=== PATIENT | female | born 1950 | race Caucasian/White ===

== ENCOUNTER 2019-03-05 14:30 | Observation (INO) ==
--- NOTE | 2019-03-05 15:13 | Emergency Department Note ---
Disposition Clinical Impression: Bronchitis Chest pain Qualifiers: Chest pain type: unspecified Qualified Code(s): R07.9 - Chest pain, unspecified Disposition: Admitted As Inpatient Condition: Good Time of Disposition: 15:27 Chest Pain HPI - General Chief Complaint: ED Chest Pain Stated Complaint: CP,Sent from cardiology Time Seen by Provider: 03/05/19 14:39 Source: patient, family Limitations: no limitations Vital Signs Reviewed: Yes Nursing Notes Reviewed: Yes - History of Present Illness HPI Narrative: Female patient with a history of 4 stents placed present to the emergency department being sent by cardiology for left sided chest pain. She had an episode of this approximately 4 days ago as well that self resolve. States that now that she is here the chest pain is leading up to her left neck. States this pain started while she was driving in today. Does have history of TN previously. Last stent was placed 3 years ago. She does take Eliquis is 2 times a day. Since replace at [facility]. She is following with cardiology here however. Severity scale (1-10): 5 - Related Data Home Medications Medication Instructions Recorded Confirmed Albuterol Sulfate [Albuterol 2 puff IH Q6H PRN 10/05/18 03/05/19 Inhaler] Apixaban [Eliquis] 2.5 mg PO DAILY 10/05/18 03/05/19 Budesonide/Formoterol 160/4.5 2 puff IH BIDR 10/05/18 03/05/19 [Symbicort 160/4.5] Clopidogrel [Plavix] 75 mg PO DAILY 10/05/18 03/05/19 Cyclobenzaprine HCl 10 mg PO HS 10/05/18 03/05/19 DULoxetine [Cymbalta] 30 mg PO DAILY 10/05/18 03/05/19 Dicyclomine Hcl [Bentyl] 20 mg PO QID PRN 10/05/18 03/05/19 Ergocalciferol (VITAMIN D2) 50,000 unit PO WE 10/05/18 03/05/19 [Vitamin D2] Fenofibric Acid (Choline) 135 mg PO DAILY 10/05/18 03/05/19 [Trilipix] Ferrous Gluconate 324 mg PO DAILY 10/05/18 03/05/19 Fluticasone Propionate Nasal 50 mcg NS DAILY 10/05/18 03/05/19 [Flonase] Folic Acid 1 mg PO DAILY 10/05/18 03/05/19 Hydroxychloroquine Sulfate 200 mg PO TID 10/05/18 03/05/19 [Plaquenil] Levothyroxine Sodium [Tirosint] 50 mcg PO QAM 10/05/18 03/05/19 Losartan Potassium [Cozaar] 50 mg PO DAILY 10/05/18 03/05/19 Methotrexate [Otrexup] 15 mg PO MO 10/05/18 03/05/19 Nitroglycerin [Nitrostat] 0.4 mg SL CONT PRN MDD X3 DOSES 10/05/18 03/05/19 CALL 911 Omeprazole [PriLOSEC] 20 mg PO BID 10/05/18 03/05/19 Potassium Chloride [Klor-Con 10] 10 meq PO TID 10/05/18 03/05/19 Spironolactone [Aldactone] 50 mg PO QAM 10/05/18 03/05/19 Albuterol Neb [Proventil Neb] 2.5 mg PO Q6H PRN 03/05/19 03/05/19 Allopurinol [Zyloprim 300 MG] 300 mg PO DAILY 03/05/19 03/05/19 Atorvastatin Calcium [Lipitor] 20 mg PO HS 03/05/19 03/05/19 Cyanocobalamin (B-12) [Vitamin B12] 1,000 mcg SQ QMONTH 03/05/19 03/05/19 Fexofenadine HCl [Allergy Relief] 180 mg PO DAILY 03/05/19 03/05/19 Furosemide [Lasix] 40 mg PO QPM 03/05/19 03/05/19 Furosemide [Lasix] 60 mg PO QAM 03/05/19 03/05/19 Metoprolol [Lopressor] 25 mg PO BID 03/05/19 03/05/19 Montelukast Sodium [Singulair] 5 mg PO DAILY 03/05/19 03/05/19 Polyethylene Glycol 3350 17 gm PO DAILY 03/05/19 03/05/19 Allergies Allergy/AdvReac Type Severity Reaction Status Date / Time acetaminophen Allergy Vomiting Verified 03/05/19 22:23 [From Joss] ampicillin Allergy Rash Verified 03/05/19 22:23 codeine Allergy Vomiting Verified 03/05/19 22:23 iodine Allergy Rash Verified 03/05/19 22:23 meperidine [From Demerol] Allergy Vomiting Verified 03/05/19 22:23 moxifloxacin [From Avelox] Allergy See Verified 03/05/19 22:23 Comments Penicillins Allergy Rash Verified 03/05/19 22:23 pentazocine Allergy See Verified 03/05/19 22:23 Comments phenobarbital Allergy Vomiting Verified 03/05/19 22:23 propoxyphene [From Darvon] Allergy Vomiting Verified 03/05/19 22:23 Sulfa (Sulfonamide Allergy Rash Verified 03/05/19 22:23 Antibiotics) morphine AdvReac Vomiting Verified 03/05/19 22:23 All systems ED: reviewed and negative except as stated. Review of Systems: As Per HPI Constitutional: Denies: fever, chills ENT ED: Denies: congestion Cardiovascular: Reports: chest pain Respiratory: Denies: cough, dyspnea Gastrointestinal: Reports: nausea. Denies: abdominal pain, vomiting, diarrhea Genitourinary: Denies: urgency, dysuria, frequency Musculoskeletal: Reports: neck pain (Chest pain radiates to her neck. Started and she has been in the emergency department.). Denies: back pain Chest Pain PMH - Past Medical History Medical history: Reports: other Surgical history: Reports: appendectomy, cholecystectomy, hysterectomy Psychiatric history: Reports: no psych history - Social History Smoking Status: Never smoker Alcohol use: Reports: none Drug use: Reports: none Physical Exam - General Limitations: no limitations General appearance: alert, in no apparent distress - Head Head exam: atraumatic, normocephalic, normal inspection - Eye Eye exam: Present: normal appearance, PERRL, EOMI - ENT ENT exam: normal exam, normal oropharynx, mucous membranes moist - Neck Neck exam: Present: normal inspection, full ROM, trachea midline - Chest Chest inspection: Present: normal inspection, symmetric chest wall rise - Respiratory Respiratory exam: Present: normal lung sounds bilaterally. Absent: respiratory distress, accessory muscle use - Cardiovascular Cardiovascular exam: Present: regular rate, normal rhythm, normal heart sounds - Abdominal Exam Abdominal exam: Present: soft, Non-Tender. Absent: tenderness, distention, guarding, rebound, rigidity, organomegaly, Saucedo's sign, Rovsing's sign, tenderness at McBurney's Point - Extremities Exam Extremities exam: Present: normal inspection, full ROM, normal capillary refill, pedal edema (Mild to lower extremities). Absent: tenderness - Neurological Exam Neurological exam: Present: alert, oriented X3 - Psychiatric Psychiatric exam: Present: normal affect, normal mood - Skin Skin exam: Present: warm, dry, intact, normal color Course Course Narrative: Patient appears comfortable resting in bed. She does complain of left-sided chest pain. States that she is now starting to her left neck. She was provided with nitroglycerin while here. She did take Elequis daily and states that she has been taking it as appropriate. Does have a history of TN. States that the pain does feel like her previous MIs. We did get a basic lab workup on patient which showed no elevation of troponin. The nitroglycerin did decrease her chest pain. She is currently anticoagulated. We will admit to the hospital for further evaluation of her chest pain. Patient is agreeable with this. Vitals are stable. - Consultations Consultation #1: Dr. Dr Cruz accepted patient in stable condition Time: 15:45 Vital Signs Temperature 98.3 F 03/05/19 14:32 Pulse Rate 86 03/05/19 14:32 Respiratory Rate 18 03/05/19 14:32 Blood Pressure 130/78 03/05/19 14:32 O2 Sat by Pulse Oximetry 98 03/05/19 14:32 Temperature 97.8 F 03/05/19 17:55 Pulse Rate 74 03/05/19 17:55 Respiratory Rate 16 03/05/19 17:55 Blood Pressure 115/76 03/05/19 17:55 O2 Sat by Pulse Oximetry 97 03/05/19 17:55 Oxygen Delivery Oxygen Delivery Room Air Chest Pain - Medical Records Medical records reviewed: Yes I reviewed the patient's medical records. - Lab Data Lab results reviewed: Yes I reviewed the patient's lab results. Result diagrams: 03/06/19 03:59 03/06/19 03:59 Lab Results 03/05/19 03/05/19 03/05/19 Range/Units 14:49 14:49 14:49 WBC 7.7 (4.3-11.1) K/mcL RBC 3.98 (3.82-4.97) M/mcL Hgb 12.3 (11.5-15.4) g/dL Hct 38.1 (35.3-44.9) % MCV 95.7 (83.0-100.0) fL MCH 30.9 (28.0-33.3) pg MCHC 32.3 (31.6-35.5) g/dL RDW 15.0 H (11.5-14.5) % Plt Count 350 (140-400) K/mcL MPV 9.4 (9.4-12.4) fL Immature Gran % 1.2 (0-4) % Seg Neutrophils % 66.3 % Lymphocytes % 17.2 % Monocytes % 12.0 % Eosinophils % 2.1 % Basophils % 1.2 % Neutrophils # 5.1 (1.6-8.9) K/mcL Lymphocytes # 1.3 (0.6-4.6) K/mcL Monocytes # 0.9 (0.0-1.3) K/mcL Eosinophils # 0.2 (0.0-0.6) K/mcL Basophils # 0.1 (0.0-0.2) K/mcL PT 13.7 H (9.4-12.1) Seconds INR 1.2 APTT 36.2 H (26.0-36.0) Seconds Sodium 143 (136-145) mEq/L Potassium 3.2 L (3.5-5.1) mEq/L Chloride 107 (98-107) mEq/L Carbon Dioxide 27 (23-29) mEq/L BUN 13 (8-23) mg/dL Creatinine 0.93 (0.60-1.20) mg/dL Est GFR ( Amer) > 60 (> 60) Est GFR (Non-Af Amer) 60 (> 60) BUN/Creatinine Ratio 14 (6-26) Glucose 115 H (70-105) mg/dL Calculated Osmolality 297 (280-300) Calcium 10.2 (8.6-10.3) mg/dL Troponin I < 0.03 (< 0.04) ng/mL - Radiology Data Radiology results reviewed: Yes I reviewed the patient's radiology results. Chest X-Ray 03/05/19 14:39 IMPRESSION: Increased lung markings at the bilateral infrahilar regions, may be related to mild bronchitis. D/ / Sanket Giang MD / Sanket Giang MD Interpreting Provider: Sanket Giang MD Attestation Statement - Attestation Attestation: Resident Attestation: I examined this patient and my medical decision making was reviewed with the Resident Physician. I agree with the documented findings, disposition and treatment plan as described except to the extent set forth below. We independently had [id number] contact with the patient. Patient presenting for evaluation of chest pain feels like previous TN. Improved with nitroglycerin. Patient be admitted for further management. No acute distress, resting in bed comfortably, regular rhythm, clear to auscultation bilaterally, no significant swelling to lower extremities.
[2019-03-05 15:15] LABS: Basophils # 0.1 K/mcL (0.0-0.2); Basophils % 1.2 %; Eosinophils # 0.2 K/mcL (0.0-0.6); Eosinophils % 2.1 %; Hematocrit 38.1 % (35.3-44.9); Hemoglobin 12.3 g/dL (11.5-15.4); Immature Granulocytes % 1.2 % (0-4); Lymphocytes # 1.3 K/mcL (0.6-4.6); Lymphocytes % 17.2 %; Mean Corpuscular HGB Conc 32.3 g/dL (31.6-35.5); Mean Corpuscular Hemoglobin 30.9 pg (28.0-33.3); Mean Corpuscular Volume 95.7 fL (83.0-100.0); Mean Platelet Volume 9.4 fL (9.4-12.4); Monocytes # 0.9 K/mcL (0.0-1.3); Neutrophils # 5.1 K/mcL (1.6-8.9); Platelet Count 350 K/mcL (140-400); Red Blood Count 3.98 M/mcL (3.82-4.97); Segmented Neutrophils % 66.3 %
[2019-03-05 15:16] LABS: INR 1.2; Prothrombin Time 13.7 Seconds (9.4-12.1)
[2019-03-05 15:18] LABS: Activated Partial Thrombo Time 36.2 Seconds (26.0-36.0)
[2019-03-05 15:23] LABS: BUN/Creatinine Ratio 14 (6-26); Blood Urea Nitrogen 13 mg/dL (8-23); Calcium 10.2 mg/dL (8.6-10.3); Carbon Dioxide 27 mEq/L (23-29); Chloride 107 mEq/L (98-107); Glucose 115 mg/dL (70-105); Osmolality,Calculated 297 (280-300); Potassium 3.2 mEq/L (3.5-5.1); Sodium 143 mEq/L (136-145); Troponin I < 0.03 ng/mL (< 0.04); eGFR For Non-African Americans 60 (> 60)
[2019-03-05] MEDS ORDERED: Ondansetron 4 MG/2 ML VIAL IVP PRN (16:03)
[2019-03-05] MEDS ORDERED: Naloxone 0.4 MG/ML INJ IVP PRN (16:03)
[2019-03-05] MEDS: Nitroglycerin 0.4 MG TAB.SUBL SL STA ×3 (16:07→16:25)
[2019-03-05] MEDS: Potassium Chloride Elixir 20 MEQ/15 ML UDC PO SCH (16:07)
--- NOTE | 2019-03-05 16:12 | Internal Med History&Physical ---
Date of Encounter: 03/05/19 Time of Encounter: 15:30 Internal Medicine - H&P: HPI Chief complaint: Chest pain Admitted From: Home History of present illness: Ms. Hwang is a 69 year old female with history of CAD status post PCI 4 (last one 3 years ago), proximal A. fib, cough variant asthma, SLE, Joe thyroiditis, and CKD, who presented from cardiology office due to chest pain. States that it started while she was driving to the clinic at 12:30pm, heaviness, radiates to her left neck. Associated with diaphoresis. No relieving factor so far but it was worsened with deep inspiration. Taking Eliquis presumably for Afib (recently transferred her care from [facility] to [place] due to insurance). No recent immobilization or surgery. Denies any shortness of breath, cough, sputum production, or sick contacts. No palpitation, hemoptysis, orthopnea, PND, or leg swelling. No GI/ symptoms. She was initially noted to be borderline hypotensive at the cardiology clinic but upon presentation to the ED, her blood pressure had already normalized. Otherwise afebrile and with good oxygen saturation on room air. Labwork was unremarkable with normal troponin and WBC. K 3.2, Cr 0.93. EKG showed normal sinus rhythm without STT changes concerning for ischemia. Chest x-ray to my interpretation is mostly clear but is reported to show increased lung markings at the bilateral infrahilar regions which could be related to mild bronchitis. Pt was admitted for further management Past Med Surg Social Fam HX - Past Medical History Medical history: asthma, atrial fibrillation, coronary artery disease, hypertension, other Additional medical history: SLE, Joe thyroiditis, sleep apnea Psychiatric history: no psych history - Past Surgical History Surgical History: appendectomy, cholecystectomy, hysterectomy Additional surgical history: heart stents x4, ovarian cysts removed, knee scope - Social History Smoking Status: Never smoker Smokeless Tobacco Status: No Alcohol use: none Drug use: none - Additional Family History Additional family history: No family history of premature CAD Internal Medicine - H&P: Meds Albuterol Sulfate [Albuterol Inhaler] 1 puff IH TID PRN 10/05/18 [History] Allopurinol [Zyloprim 100 MG] 100 mg PO DAILY 10/05/18 [History] Apixaban [Eliquis] 2.5 mg PO DAILY 10/05/18 [History] Budesonide/Formoterol 160/4.5 [Symbicort 160/4.5] 2 puff IH BIDR 10/05/18 [History] Cetirizine HCl [24Hour Allergy] 10 mg PO DAILY 10/05/18 [History] Cholecalciferol (Vitamin D3) [Dialyvite Vitamin D] 5,000 unit PO DAILY 10/05/18 [History] Clindamycin [Cleocin] 150 mg PO Q6HR #7 capsule 10/05/18 [Rx] Clopidogrel [Plavix] 75 mg PO DAILY 10/05/18 [History] Cyanocobalamin (B-12) [Vitamin B12] 1,000 mcg PO DAILY 10/05/18 [History] Cyclobenzaprine HCl 10 mg PO TID 10/05/18 [History] DULoxetine [Cymbalta] 30 mg PO BID 10/05/18 [History] Dicyclomine Hcl [Bentyl] 20 mg PO QID 10/05/18 [History] Ergocalciferol (VITAMIN D2) [Vitamin D2] 50,000 unit PO DAILY 10/05/18 [History] Fenofibric Acid (Choline) [Trilipix] 135 mg PO DAILY 10/05/18 [History] Fenofibric Acid (Choline) [Trilipix] 135 mg PO DAILY 10/05/18 [History] Ferrous Gluconate 324 mg PO DAILY 10/05/18 [History] Fluticasone Propionate Nasal [Flonase] 50 mcg NS DAILY 10/05/18 [History] Folic Acid 1 mg PO DAILY 10/05/18 [History] Furosemide [Lasix] 10 mg PO DAILY 10/05/18 [History] Furosemide [Lasix] 20 mg PO BID 10/05/18 [History] Gabapentin [Neurontin] 100 mg PO TID 10/05/18 [History] GuaiFENesin ER [Mucinex] 600 mg PO BID 10/05/18 [History] Hydroxychloroquine Sulfate [Plaquenil] 200 mg PO DAILY 10/05/18 [History] Levocetirizine Dihydrochloride [Allergy Relief] 5 mg PO DAILY 10/05/18 [History] Levothyroxine Sodium [Tirosint] 50 mcg PO DAILY 10/05/18 [History] Losartan Potassium [Cozaar] 50 mg PO DAILY 10/05/18 [History] Magnesium Oxide [Magnesium] 400 mg PO DAILY 10/05/18 [History] Methotrexate [Otrexup] 2.5 mg PO QWEEK 10/05/18 [History] Metoprolol Tartrate [Lopressor] 50 mg PO BID 10/05/18 [History] Nitroglycerin [Nitrostat] 0.4 mg SL CONT PRN 10/05/18 [History] Omeprazole Magnesium [Prilosec Otc] 20 mg PO DAILY 10/05/18 [History] Omeprazole [PriLOSEC] 20 mg PO DAILY 10/05/18 [History] Polyethylene Glycol [Polyox Wsr-301] 1 gm MC DAILY 10/05/18 [History] Potassium Chloride [Klor-Con 10] 10 meq PO BID 10/05/18 [History] Spironolactone [Aldactone] 50 mg PO DAILY 10/05/18 [History] Allergy/AdvReac Type Severity Reaction Status Date / Time acetaminophen Allergy Vomiting Verified 01/25/19 11:06 [From Darvocet-N] ampicillin Allergy Rash Verified 01/25/19 11:06 codeine Allergy Vomiting Verified 01/25/19 11:06 iodine Allergy Rash Verified 01/25/19 11:06 meperidine [From Demerol] Allergy Vomiting Verified 01/25/19 11:06 moxifloxacin [From Avelox] Allergy See Verified 01/25/19 11:06 Comments Penicillins Allergy Rash Verified 09/04/18 09:38 pentazocine Allergy See Verified 01/25/19 11:06 Comments phenobarbital Allergy Vomiting Verified 01/25/19 11:06 propoxyphene [From Darvon] Allergy Vomiting Verified 01/25/19 11:06 Sulfa (Sulfonamide Allergy Rash Verified 01/25/19 11:06 Antibiotics) morphine AdvReac Vomiting Verified 01/25/19 11:06 All Systems PM: A 10-system review of systems was performed and is negative for pertinent findings except as documented above in the HPI. - Constitutional Vitals: Temp Pulse Resp BP Pulse Ox 98.3 F 86 18 130/78 100 03/05/19 14:32 03/05/19 14:32 03/05/19 14:32 03/05/19 14:32 03/05/19 16:00 Exam: General: Alert and oriented, mild distress HEENT:EOMI, pupils equal, round and reactive. Cardiovascular:Normal S1 & S2, No JVD. Pulse regular. No chest wall tenderness Lungs: clear to auscultation, no wheezes/rales Abdomen:Soft, non-tender, no rigidity. Extremities:No deformity or swelling Neurological:Normal cognition and motor skills. Non-focal Skin:Normal color, no rash, no lesions. Pulses:Carotid and radial pulses normal +2. Rest of the physical exam is non contributory Internal Med - H&P Results - Labs CBC & Chem 7: 03/05/19 14:49 03/05/19 14:49 Labs: Short CBC 03/05/19 Range/Units 14:49 WBC 7.7 (4.3-11.1) K/mcL Hgb 12.3 (11.5-15.4) g/dL Hct 38.1 (35.3-44.9) % Plt Count 350 (140-400) K/mcL Neutrophils # 5.1 (1.6-8.9) K/mcL BMP 03/05/19 14:49 Sodium 143 Potassium 3.2 L Chloride 107 Carbon Dioxide 27 BUN 13 Creatinine 0.93 Glucose 115 H Calcium 10.2 Cardiac Enzymes 03/05/19 Range/Units 14:49 Troponin I < 0.03 (< 0.04) ng/mL - Impressions ITS Impressions Chest X-Ray 03/05/19 14:39 IMPRESSION: Increased lung markings at the bilateral infrahilar regions, may be related to mild bronchitis. D/ / Sanket Giang MD / Sanket Giang MD Interpreting Provider: Sanket Giang MD - Assessment and Plan (1) Chest pain Current Visit: Yes Status: Acute Assessment and plan: Acute onset of chest pain at 12:30 PM on the day of presentation in a patient with prior CAD with PCI 1st troponin -ve, EKG without ST-T changes concerning for ischemia of note, pt recently had low dose stress test (limited due to low BP), which was -ve for ischemia or infarct. Echo was also unremarkable. trend troponin telemetry will discuss with cardiology for the next step in investigation resume home meds for CAD once reconciled Qualifiers: Chest pain type: unspecified Qualified Code(s): R07.9 - Chest pain, unspecified (2) Cough variant asthma Current Visit: No Status: Chronic Assessment and plan: Not in exacerbation Resume home inhalers once reconciled (3) Afib Current Visit: Yes Status: Chronic Assessment and plan: Currently in normal sinus rhythm On Eliquis at home, resume once reconciled Qualifiers: Atrial fibrillation type: paroxysmal Qualified Code(s): I48.0 - Paroxysmal atrial fibrillation (4) CKD (chronic kidney disease) stage 3, GFR 30-59 ml/min Current Visit: No Status: Chronic Assessment and plan: Cr 0.93 on presentation continue to monitor (5) History of systemic lupus erythematosus (SLE) Current Visit: No Status: Chronic Assessment and plan: Resume home meds once reconciled (6) DVT prophylaxis Current Visit: Yes Status: Acute Assessment and plan: on Eliquis - Time Spent With Patient Total time spent is greater than 50% in coordination of care (as documented) at patient's floor/unit and/or counseling patient: 25 - 35 minutes
[2019-03-05] MEDS ORDERED: Ipratropium/Albuterol Neb 3 ML IH PRN (16:31)
[2019-03-05] MEDS: Nitroglycerin 0.4 MG TAB.SUBL SL PRN ×2 (19:12→19:16)
[2019-03-05] MEDS ORDERED: Aspirin Enteric Coated 325 MG Tablet PO ONE (19:25)
[2019-03-05] MEDS ORDERED: Aspirin 81 MG TAB.CHEW ONE (19:29)
[2019-03-05] MEDS ORDERED: Nitroglycerin 25 MG/250 ML INFUS..BTL IVC SCH (19:45)
[2019-03-05] MEDS: Apixaban 5 MG TABLET PO SCH (20:22)
[2019-03-05] MEDS ORDERED: Aspirin Enteric Coated 81 MG Tablet PO ONE (21:45)
--- NOTE | 2019-03-06 02:11 | Event Note ---
Date of Encounter: 03/05/19 Time of Encounter: 19:00 Alerted by nurses on 3B as I was making my initial rounds that I needed to see this pt. immediately as she was reporting CP 07/17. Went to see pt. who was laying in bed, appeared restless, and was holding her chest. Pt. stated that she was having left-sided chest pain w/radiation to left neck. Pt. had received 1 dose of SL nitro w/o relief. Stat EKG ordered which showed SR w/borderline left axis deviation. Stat troponin ordered early d/t pts. current sx. Initial troponin <0.03. 324 mg aspirin ordered and given to pt. 80 mg Lipitor ordered and given. Pt. has had hypotension, so BP was carefully monitored after SL nitro which dropped to low 90s systolically for a brief time and increased to 110s then 120s. Pts. daughter was present and stated that in the past a nitro gtt worked for pts. CP when SL did not. Nitro gtt ordered. Pt. had an Echocardiogram done on 02/09/19 which showed LVEF grossly 75%, hyperdynamic LV, mild left ventricular diastolic dysfunction, grossly normal RV size and function, no significant valvular dysfunction. Unable to estimate RVSP due to lack of TR jet and IVC visualization. Limited Echocardiogram ordered. Alerted by pts. nurse at 20:36 that pt. was reporting improvement in CP. Echocardiogram and bilateral carotid Dopplers completed. D/t improvement in CP sx, nitro gtt held for now. Resident Afshan Regalado will be covering 3B for the evening. Dr. Regalado informed of the situation and told to monitor pt. closely. Pts. nurse instructed to continue monitoring the pt. very closely and alert Dr. Regalado or myself immediately of any adverse changes. 2nd and 3rd troponins <0.03.
[2019-03-06 04:12] LABS: Hematocrit 36.5 % (35.3-44.9); Mean Corpuscular HGB Conc 32.9 g/dL (31.6-35.5); Mean Corpuscular Hemoglobin 31.9 pg (28.0-33.3); Mean Corpuscular Volume 97.1 fL (83.0-100.0); Mean Platelet Volume 9.3 fL (9.4-12.4); Platelet Count 321 K/mcL (140-400); Red Blood Count 3.76 M/mcL (3.82-4.97)
[2019-03-06 04:32] LABS: BUN/Creatinine Ratio 15 (6-26); Blood Urea Nitrogen 15 mg/dL (8-23); Calcium 10.2 mg/dL (8.6-10.3); Carbon Dioxide 24 mEq/L (23-29); Chloride 108 mEq/L (98-107); Chol/HDL Ratio 2.9 (0-4.9); Cholesterol 103 mg/dL (< 200); Glucose 110 mg/dL (70-105); HDL Cholesterol 36 mg/dL (40-59); LDL Cholesterol,Calculated 52 mg/dL (0-99); Magnesium 2.3 mg/dL (1.6-2.6); Osmolality,Calculated 297 (280-300); Potassium 3.7 mEq/L (3.5-5.1); Sodium 143 mEq/L (136-145); Triglycerides 74 mg/dL (< 150); eGFR For Non-African Americans 56 (> 60)
[2019-03-06] MEDS: Potassium Chloride Elixir 20 MEQ/15 ML UDC PO SCH ×2 (09:30→12:07)
[2019-03-06] MEDS: Apixaban 5 MG TABLET PO SCH ×3 (09:30→21:29)
[2019-03-06] MEDS: Isosorbide MONOnitrate (24 HR) 30 MG TAB.ER.24H PO SCH ×2 (09:30→12:07)
--- NOTE | 2019-03-06 13:57 | Cardiology Consult Note ---
<Billie Kaur - Last Filed: 03/06/19 14:21> Date of Encounter: 03/06/19 Time of Encounter: 10:00 Assessment and Plan (1) Chest pain Current Visit: Yes Status: Acute Patient presents with typical chest pain with radiation to left shoulder and neck, diaphoresis and shortness of breath History of CAD s/p ND and 4 stents, HTN, HLD Stress test 02/13/19- Perfusion imaging negative for ischemia or infarct ECHO 02/09/19- LVEF 75%, hyperdynamic LV, mild LV diastolic dysfunction, grossly normal RV size and function, no sign of valvular dysfunction. Limited ECHO 03/05/19- LVEF 70&, RV not well visualized, grossly normal systolic function Troponins negative x 3 EKG shows NSR with left axis deviation, KS 205, QRS 100, QT 404, QTc 440, no ST elevation or depression CXR- increased lung markings at bilateral infrahilar regions which may represent mild bronchitis Continue atorvastatin, plavix, eliquis, lopressor, and if blood pressure stable, SL nitro, imdur, losartan Continuous cardiac monitoring Patient to undergo LHC tomorrow as she is allergic to contrast dye. She will be NPO at midnight and pretreated with prednisone and benadryl. Qualifiers: Chest pain type: unspecified Qualified Code(s): R07.9 - Chest pain, unspecified (2) CAD (coronary artery disease) Current Visit: Yes Status: Acute History of CAD [facility] records review- ND in 2001 s/p MARIAN LAD, MARIAN mRCA 2004 and 2012. 10/2014 normal stress. Troponin negative x3 EKG shows NSR with left axis deviation, KS 205, QRS 100, QT 404, QTc 440, no ST elevation or depression Continue eliquis, plavix, lopressor, atorvastatin, losartan if blood pressure stable, SL nitro and imdur. Qualifiers: Coronary Disease-Associated Artery/Lesion type: ambler artery [place] vs. transplanted heart: ambler heart Associated angina: with unspecified angina Qualified Code(s): I25.119 - Atherosclerotic heart disease of ambler coronary artery with unspecified angina pectoris (3) Paroxysmal atrial fibrillation Current Visit: Yes Status: Acute History of PAF Currently NSR Continue home medications metoprolol and eliquis Continous cardiac monitoring (4) HTN (hypertension) Current Visit: Yes Status: Acute History of HTN, however patient has had some episodes of hypotension most likely secondary to SL nitroglycerin and imdur Patient to take lopressor for PAF, can hold losartan if needed. Continuous cardiac monitoring Qualifiers: Hypertension type: unspecified Qualified Code(s): I10 - Essential (primary) hypertension (5) HLD (hyperlipidemia) Current Visit: Yes Status: Acute History of hyperlipidemia Continue home medication atrovastatin Qualifiers: Hyperlipidemia type: unspecified Qualified Code(s): E78.5 - Hyperlipidemia, unspecified (6) CKD (chronic kidney disease) stage 3, GFR 30-59 ml/min Current Visit: No Status: Chronic History of CKD stage 3 BUN 15, Cr 0.99, GFR 56- currently stable at baseline Continue to renally dose medications and avoid nephrotoxic agents (7) DVT prophylaxis Current Visit: Yes Status: Acute Eliquis Discussion w patient/family: The assessment and plan as outlined above was discussed with the patient and/or family members who expressed understanding and agreement. All questions were answered. Thank you for involving us in the care of your patient. Please call with any questions. History of Present Illness Consult date: 03/06/19 Consult reason: Chest pain Chief complaint: Chest pain History of present illness: Ms. Hwang is a 69 year old female presenting with complaint of chest pain from cardiology clinic. PMH of CAD s/p ND in 2001, s/p MARIAN LAD, MARIAN mRCA 2004 and 2012. Normal stress test in 2013. Also, paroxysmal afib, HTN, HLD, CKD stage 3, SLE, Hashimotos thryroiditis, asthma. She states that she has been chest pain free up until yesterday when she began to feel left sided chest pressure, 8/10 with radiation to left shoulder and neck which occurred while driving to doctor's appointment. She states that she was also diaphoretic, short of breath and nauseous. She is unsure if chest pain is exertion. She had a repeateepisode last night as well with chest pressure that did not radiate. She also admits to progressive fatigue over the past few weeks. Her last ECHO was 02/09/19 with LVEF 75%, hyperdynamic LV, mild LV diastolic dysfunction, grossly normal RV size and function and no sign of valve dysfunction. She had a stress test 02/13/19 which was negative for ischemia or infarct. Past Med Surg Social Fam HX - Past Medical History Medical history: asthma, atrial fibrillation, coronary artery disease, hypertension, other Additional medical history: SLE, Joe thyroiditis, sleep apnea Psychiatric history: no psych history - Past Surgical History Surgical History: appendectomy, cholecystectomy, hysterectomy Additional surgical history: heart stents x4, ovarian cysts removed, knee scope - Social History Smoking Status: Never smoker Smokeless Tobacco Status: No Alcohol use: none Drug use: none Medications and Allergies Albuterol Sulfate [Albuterol Inhaler] 2 puff IH Q6H PRN 10/05/18 [History] Apixaban [Eliquis] 2.5 mg PO DAILY 10/05/18 [History] Budesonide/Formoterol 160/4.5 [Symbicort 160/4.5] 2 puff IH BIDR 10/05/18 [History] Clopidogrel [Plavix] 75 mg PO DAILY 10/05/18 [History] Cyclobenzaprine HCl 10 mg PO HS 10/05/18 [History] DULoxetine [Cymbalta] 30 mg PO DAILY 10/05/18 [History] Dicyclomine Hcl [Bentyl] 20 mg PO QID PRN 10/05/18 [History] Ergocalciferol (VITAMIN D2) [Vitamin D2] 50,000 unit PO WE 10/05/18 [History] Fenofibric Acid (Choline) [Trilipix] 135 mg PO DAILY 10/05/18 [History] Ferrous Gluconate 324 mg PO DAILY 10/05/18 [History] Fluticasone Propionate Nasal [Flonase] 50 mcg NS DAILY 10/05/18 [History] Folic Acid 1 mg PO DAILY 10/05/18 [History] Hydroxychloroquine Sulfate [Plaquenil] 200 mg PO TID 10/05/18 [History] Levothyroxine Sodium [Tirosint] 50 mcg PO QAM 10/05/18 [History] Losartan Potassium [Cozaar] 50 mg PO DAILY 10/05/18 [History] Methotrexate [Otrexup] 15 mg PO MO 10/05/18 [History] Nitroglycerin [Nitrostat] 0.4 mg SL CONT PRN MDD X3 DOSES CALL 911 10/05/18 [History] Omeprazole [PriLOSEC] 20 mg PO BID 11/29/18 [History] Potassium Chloride [Klor-Con 10] 10 meq PO TID 10/05/18 [History] Spironolactone [Aldactone] 50 mg PO QAM 10/05/18 [History] Albuterol Neb [Proventil Neb] 2.5 mg PO Q6H PRN 03/05/19 [History] Allopurinol [Zyloprim 300 MG] 300 mg PO DAILY 03/05/19 [History] Atorvastatin Calcium [Lipitor] 20 mg PO HS 03/05/19 [History] Cyanocobalamin (B-12) [Vitamin B12] 1,000 mcg SQ QMONTH 03/05/19 [History] Fexofenadine HCl [Allergy Relief] 180 mg PO DAILY 03/05/19 [History] Furosemide [Lasix] 40 mg PO QPM 03/05/19 [History] Furosemide [Lasix] 60 mg PO QAM 03/05/19 [History] Metoprolol [Lopressor] 25 mg PO BID 03/05/19 [History] Montelukast Sodium [Singulair] 5 mg PO DAILY 03/05/19 [History] Polyethylene Glycol 3350 17 gm PO DAILY 03/05/19 [History] Allergy/AdvReac Type Severity Reaction Status Date / Time acetaminophen Allergy Vomiting Verified 03/05/19 22:23 [From Darvocet-N] ampicillin Allergy Rash Verified 03/05/19 22:23 codeine Allergy Vomiting Verified 03/05/19 22:23 iodine Allergy Rash Verified 03/05/19 22:23 meperidine [From Demerol] Allergy Vomiting Verified 03/05/19 22:23 moxifloxacin [From Avelox] Allergy See Verified 03/05/19 22:23 Comments Penicillins Allergy Rash Verified 03/05/19 22:23 pentazocine Allergy See Verified 03/05/19 22:23 Comments phenobarbital Allergy Vomiting Verified 03/05/19 22:23 propoxyphene [From Darvon] Allergy Vomiting Verified 03/05/19 22:23 Sulfa (Sulfonamide Allergy Rash Verified 03/05/19 22:23 Antibiotics) morphine AdvReac Vomiting Verified 03/05/19 22:23 All Systems Review: The remainder of the systems were reviewed and are negative - Constitutional Constitutional: no chills, no fever(s) - EENT Eyes: no loss of vision Nose, mouth and throat: no dysphagia - Cardiovascular Cardiovascular: chest pain at rest, diaphoresis, dyspnea at rest, radiating jaw, neck or arm pain, lightheadedness, no leg edema, no orthopnea, no palpitations, no paroxysmal nocturnal dyspnea, no syncope - Respiratory Respiratory: no cough - Gastrointestinal Gastrointestinal: no abdominal pain, no constipation, no diarrhea - Genitourinary Genitourinary: no dysuria, no hematuria - Musculoskeletal Musculoskeletal: no arthralgias, no myalgias - Integumentary Integumentary: no erythema - Neurological Neurological: no focal weakness, no syncope - Psychiatric Psychiatric: no anxiety, no depression - Hematological/Lymphatic Hematologic/Lymphatic: easy bleeding Physical Examination Vital Signs, Last 4 Hours Temp Pulse Resp BP Pulse Ox 03/06/19 11:20 97.5 F L 67 16 126/76 95 General: Conversant, No Apparent Distress HEENT: Atraumatic, Normocephaly, Mucus Membranes Moist Neck: No JVD, Normal carotid pulses Cardiac: Reg Rate and Rhythm, Normal S1 and S2, No Murmur Lungs: Normal Breath Sounds, No Wheeze, Rales, Rhonchi Neuro: Alert and responsive, No focal deficits noted Abdomen: Soft, Non-Tender Skin: No rashes noted on visualized skin Musculoskeletal: No Chest Wall Tenderness Extremities: No Clubbing, No Cyanosis, No Edema, Normal Pulses Results 03/06/19 03:59 03/06/19 03:59 Lab Results 03/05/19 03/05/19 03/05/19 14:49 14:49 14:49 WBC 7.7 Hgb 12.3 Hct 38.1 Plt Count 350 INR 1.2 APTT 36.2 H Sodium 143 Potassium 3.2 L Chloride 107 Carbon Dioxide 27 BUN 13 Creatinine 0.93 Glucose 115 H Calcium 10.2 Magnesium Troponin I < 0.03 03/05/19 03/05/19 03/06/19 19:34 21:09 03:59 WBC Hgb Hct Plt Count INR APTT Sodium Potassium Chloride Carbon Dioxide BUN Creatinine Glucose Calcium Magnesium Troponin I 0.03 0.03 < 0.03 03/06/19 03/06/19 03:59 03:59 WBC 7.7 Hgb 12.0 Hct 36.5 Plt Count 321 INR APTT Sodium 143 Potassium 3.7 Chloride 108 H Carbon Dioxide 24 BUN 15 Creatinine 0.99 Glucose 110 H Calcium 10.2 Magnesium 2.3 Troponin I Consult Discharge Plan - Plan Referrals: Cherri Recinos MD [Primary Care Provider] - <Duy Diaz - Last Filed: 03/06/19 16:38> Date of Encounter: 03/06/19 - Attending Attestation I have personally performed a face to face evaluation on this patient. I have reviewed and agree with the documented findings and care plan as documented by the resident. History and Exam by me shows: 69-year-old pleasant female with history of CAD status post stents, presenting with chest pain on mild exertion relieved by nitroglycerin. She is on beta mike and nitrates. We will arrange for cardiac catheterization as soon as dye allergy prophylaxis protocol is completed. Continue aspirin, beta mike, high intensity statin. Thanks, Duy Diaz MD FAC Assessment and Plan Discussion w patient/family: The assessment and plan as outlined above was discussed with the patient and/or family members who expressed understanding and agreement. All questions were answered. Thank you for involving us in the care of your patient. Please call with any questions. History of Present Illness History of present illness: Ms. Hwang is a 69 year old female All Systems Review: The remainder of the systems were reviewed and are negative Physical Examination Vital Signs, Last 4 Hours BP 03/06/19 14:54 99/63 03/06/19 14:44 101/66 03/06/19 14:34 114/72 Results 03/06/19 03:59 03/06/19 03:59 Lab Results 03/05/19 03/05/19 03/06/19 19:34 21:09 03:59 WBC Hgb Hct Plt Count Sodium Potassium Chloride Carbon Dioxide BUN Creatinine Glucose Calcium Magnesium Troponin I 0.03 0.03 < 0.03 03/06/19 03/06/19 03:59 03:59 WBC 7.7 Hgb 12.0 Hct 36.5 Plt Count 321 Sodium 143 Potassium 3.7 Chloride 108 H Carbon Dioxide 24 BUN 15 Creatinine 0.99 Glucose 110 H Calcium 10.2 Magnesium 2.3 Troponin I
--- NOTE | 2019-03-06 14:08 | Electrocardiograph Report ---
[address] [address] Test Date: 2019-03-05 Pat Name: Ani Hwang Department: 113 Room: 3B Gender: F Mate Fourth: : 1950 Requested By: Jay Hess Order Number: [id number] Reading MD: Billie Escalante Measurements Intervals [place] Rate: 80 P: -25 DC: 205 QRS: -21 QRSD: 100 T: 3 QT: 404 QTc: 440 Interpretive Statements SINUS RHYTHM BORDERLINE LEFT AXIS DEVIATION [QRS AXIS < -20] Electronically Signed On 03-06-2019 14:06:53 EDT by Billie Escalante
[2019-03-06] MEDS: Nitroglycerin 0.4 MG TAB.SUBL SL PRN ×2 (14:39→14:44)
--- NOTE | 2019-03-06 16:21 | Electrocardiograph Report ---
[facility] Test Date: 2019-03-05 Pat Name: Ani Hwang Department: EXAM14 Room: 3B55 Gender: F Staff Home Therapy Rn: : 1950 Requested By: Jamilah Brian Order Number: [id number] Reading MD: Tj Mckeon Measurements Intervals [place] Rate: 76 P: -31 NV: 200 QRS: -19 QRSD: 102 T: 50 QT: 397 QTc: 447 Interpretive Statements Sinus rhythm Borderline left axis deviation Abnormal R-wave progression, late transition Electronically Signed On 03-06-2019 16:20:09 EDT by Tj Mckeon
[2019-03-06] MEDS: predniSONE 20 MG TABLET PO SCH (17:12)
--- NOTE | 2019-03-06 20:28 | Internal Med Progress Note ---
Hospitalist Progress Note - Encounter Date of Encounter: 03/06/19 Time of Encounter: 12:00 - Subjective Interval History: Patient was seen and examined at bedside currently denies any chest pain evaluated by cardiology and will undergo LHC in the a.m. She will be nothing by mouth after midnight - Exam Vitals: Temp Pulse Resp BP Pulse Ox 98.6 F 75 16 101/62 93 03/06/19 18:29 03/06/19 18:29 03/06/19 18:29 03/06/19 18:29 03/06/19 18:29 Exam: General: Alert and oriented, mild distress HEENT:EOMI, pupils equal, round and reactive. Cardiovascular:Normal S1 & S2, No JVD. Pulse regular. No chest wall tenderness Lungs: clear to auscultation, no wheezes/rales Abdomen:Soft, non-tender, no rigidity. Extremities:No deformity or swelling Neurological:Normal cognition and motor skills. Non-focal Skin:Normal color, no rash, no lesions. Pulses:Carotid and radial pulses normal +2. Rest of the physical exam is non contributory - Assessment and Plan (1) Chest pain Current Visit: Yes Status: Acute Assessment and Plan: Acute onset of chest pain at 12:30 PM on the day of presentation in a patient with prior CAD with PCI 1st troponin -ve, EKG without ST-T changes concerning for ischemia of note, pt recently had low dose stress test (limited due to low BP), which was -ve for ischemia or infarct. Echo was also unremarkable. trend troponin telemetry Cardiology consulted C in a.m. resume home meds for CAD once reconciled (2) Cough variant asthma Current Visit: No Status: Chronic Assessment and Plan: Not in exacerbation Resume home inhalers once reconciled (3) CKD (chronic kidney disease) stage 3, GFR 30-59 ml/min Current Visit: No Status: Chronic Assessment and Plan: Cr 0.93 on presentation continue to monitor (4) Afib Current Visit: Yes Status: Chronic Assessment and Plan: Currently in normal sinus rhythm On Eliquis at home, resume once reconciled (5) History of systemic lupus erythematosus (SLE) Current Visit: No Status: Chronic Assessment and Plan: Resume home meds once reconciled (6) DVT prophylaxis Current Visit: Yes Status: Acute Assessment and Plan: on Eliquis - Time Spent with Patient Total time spent is greater than 50% in coordination of care (as documented) at patient's floor/unit and/or counseling patient: Internal Medicine: Result - Labs CBC & Chem 7: 03/06/19 03:59 03/06/19 03:59 Labs: Short CBC 03/06/19 Range/Units 03:59 WBC 7.7 (4.3-11.1) K/mcL Hgb 12.0 (11.5-15.4) g/dL Hct 36.5 (35.3-44.9) % Plt Count 321 (140-400) K/mcL BMP 03/06/19 03:59 Sodium 143 Potassium 3.7 Chloride 108 H Carbon Dioxide 24 BUN 15 Creatinine 0.99 Glucose 110 H Calcium 10.2 Cardiac Enzymes 03/05/19 03/06/19 Range/Units 21:09 03:59 Troponin I 0.03 < 0.03 (< 0.04) ng/mL - ABG Interpretation ABG results: PT/INR, D-dimer PT 13.7 Seconds (9.4-12.1) H 03/05/19 14:49 - Impressions Impressions Echocardiogram Limited Views 03/05/19 19:31 Impressions: LVEF 70%. RV structure not well visualized. Grossly normal systolic function. Left Ventricular Wall Motion: Rest Echo Findings The apex, apical inferior, mid inferior, basal inferior, apical anterior, mid anterior and basal anterior vaughn were not visualized. All other wall segments showed normal motion. Findings: Study Quality * Technically adequate exam. ECG Findings * Normal sinus rhythm. Left Ventricle * LVEF 70%. * Grossly normal LV structure. Right Ventricle * RV structure not well visualized. Grossly normal systolic function. Aorta * Normally sized aortic root. Pericardium * There is no pericardial effusion present. Consult Discharge Plan - Plan Referrals: Cherri Recinos MD [Primary Care Provider] - (1) Chest pain Qualifiers: Chest pain type: unspecified Qualified Code(s): R07.9 - Chest pain, unspecified (4) Afib Qualifiers: Atrial fibrillation type: paroxysmal Qualified Code(s): I48.0 - Paroxysmal atrial fibrillation
[2019-03-06] MEDS: Budesonide/Formoterol 160/4.5 1 PUFF INH IH SCH (22:25)
[2019-03-07 05:01] LABS: Basophils % 0.3 %; Hematocrit 35.5 % (35.3-44.9); Hemoglobin 11.6 g/dL (11.5-15.4); Immature Granulocytes % 1.3 % (0-4); Lymphocytes # 0.9 K/mcL (0.6-4.6); Lymphocytes % 8.3 %; Mean Corpuscular HGB Conc 32.7 g/dL (31.6-35.5); Mean Corpuscular Hemoglobin 31.4 pg (28.0-33.3); Mean Corpuscular Volume 95.9 fL (83.0-100.0); Mean Platelet Volume 9.3 fL (9.4-12.4); Monocytes # 0.2 K/mcL (0.0-1.3); Monocytes % 2.1 %; Neutrophils # 9.2 K/mcL (1.6-8.9); Platelet Count 350 K/mcL (140-400); Red Cell Distribution Width 14.6 % (11.5-14.5)
[2019-03-07 05:19] LABS: BUN/Creatinine Ratio 16 (6-26); Blood Urea Nitrogen 15 mg/dL (8-23); Carbon Dioxide 22 mEq/L (23-29); Chloride 109 mEq/L (98-107); Glucose 200 mg/dL (70-105); Osmolality,Calculated 294 (280-300); Potassium 4.3 mEq/L (3.5-5.1); Sodium 139 mEq/L (136-145); eGFR For Non-African Americans > 60 (> 60)
[2019-03-07] MEDS: Budesonide/Formoterol 160/4.5 1 PUFF INH IH SCH ×2 (07:51→21:46)
[2019-03-07] MEDS: Potassium Chloride Elixir 20 MEQ/15 ML UDC PO SCH (08:12)
[2019-03-07] MEDS: Isosorbide MONOnitrate (24 HR) 30 MG TAB.ER.24H PO SCH (08:13)
[2019-03-07] MEDS: Folic Acid 1 MG TABLET PO SCH (08:13)
[2019-03-07] MEDS: Apixaban 5 MG TABLET PO SCH ×2 (08:13→21:36)
[2019-03-07] MEDS: predniSONE 20 MG TABLET PO SCH (08:14)
[2019-03-07] MEDS ORDERED: FENOFIBRIC ACID 135 MG PO SCH (09:00)
[2019-03-07] MEDS ORDERED: Furosemide 20 MG TABLET PO SCH ×2 (09:00→18:00)
--- NOTE | 2019-03-07 09:49 | Electrocardiograph Report ---
[address] [address] Test Date: 2019-03-06 Pat Name: Ani Hwang Department: 113 Room: 3B Gender: F Food Counselor: : 1950 Requested By: Leanne Rowe Order Number: [id number] Reading MD: Duy Diaz Measurements Intervals [place] Rate: 82 P: -16 SD: 200 QRS: -20 QRSD: 86 T: 32 QT: 315 QTc: 354 Interpretive Statements SINUS RHYTHM LOW QRS VOLTAGE IN PRECORDIAL LEADS [QRS DEFLECTION < 1.0 mV IN CHEST LEADS] NONSPECIFIC T-WAVE ABNORMALITY Electronically Signed On 03-07-2019 9:47:33 EDT by Duy Diaz
--- NOTE | 2019-03-07 11:46 | Internal Med Progress Note ---
Hospitalist Progress Note - Encounter Date of Encounter: 03/07/19 Time of Encounter: 11:44 - Subjective Interval History: Patient seen and examined in the room. He denies any chest pain, shortness of of breath, palpitation, or syncope currently. - Exam Vitals: Temp Pulse Resp BP Pulse Ox 97.8 F 64 14 112/68 93 03/07/19 11:08 03/07/19 11:08 03/07/19 11:08 03/07/19 11:08 03/07/19 11:08 Exam: General: Alert and oriented, mild distress HEENT:EOMI, pupils equal, round and reactive. Cardiovascular:Normal S1 & S2, No JVD. Pulse regular. No chest wall tenderness Lungs: clear to auscultation, no wheezes/rales Abdomen:Soft, non-tender, no rigidity. Extremities:No deformity or swelling Neurological:Normal cognition and motor skills. Non-focal Skin:Normal color, no rash, no lesions. Pulses:Carotid and radial pulses normal +2. Rest of the physical exam is non contributory - Assessment and Plan (1) Chest pain Current Visit: Yes Status: Acute Assessment and Plan: 69-year-old old female with history of CAD, status post multiple stents placement in the past presented with typical chest pain. [facility] plan this morning. Patient currently has no chest pain. Cardiology following, appreciate help. (2) Cough variant asthma Current Visit: No Status: Chronic Assessment and Plan: Not in exacerbation Resume home inhalers once reconciled (3) CKD (chronic kidney disease) stage 3, GFR 30-59 ml/min Current Visit: No Status: Chronic Assessment and Plan: Cr 0.92 today. continue to monitor (4) Afib Current Visit: No Status: Chronic Assessment and Plan: Currently in normal sinus rhythm On Eliquis at home. (5) History of systemic lupus erythematosus (SLE) Current Visit: No Status: Chronic Assessment and Plan: Resume home meds. (6) DVT prophylaxis Current Visit: Yes Status: Acute Assessment and Plan: on Eliquis - Time Spent with Patient Total time spent is greater than 50% in coordination of care (as documented) at patient's floor/unit and/or counseling patient: Greater than 35 minutes Plan of Care Discussed with: patient Internal Medicine: Result - Labs CBC & Chem 7: 03/07/19 04:48 03/07/19 04:48 Labs: Short CBC 03/07/19 Range/Units 04:48 WBC 10.5 (4.3-11.1) K/mcL Hgb 11.6 (11.5-15.4) g/dL Hct 35.5 (35.3-44.9) % Plt Count 350 (140-400) K/mcL Neutrophils # 9.2 H (1.6-8.9) K/mcL BMP 03/07/19 04:48 Sodium 139 Potassium 4.3 Chloride 109 H Carbon Dioxide 22 L BUN 15 Creatinine 0.92 Glucose 200 H Calcium 11.0 H - ABG Interpretation ABG results: PT/INR, D-dimer PT 13.7 Seconds (9.4-12.1) H 03/05/19 14:49 Consult Discharge Plan - Plan Referrals: Cherri Recinos MD [Primary Care Provider] - (1) Chest pain Qualifiers: Chest pain type: unspecified Qualified Code(s): R07.9 - Chest pain, unspecified (4) Afib Qualifiers: Atrial fibrillation type: paroxysmal Qualified Code(s): I48.0 - Paroxysmal atrial fibrillation
[2019-03-07] MEDS ORDERED: Heparin 1,000 UNITS/500 mL 500 ML ONE (12:25)
[2019-03-07] MEDS ORDERED: Nitroglycerin 1,000 MCG/10 ML VIAL IV ONE (12:25)
[2019-03-07] MEDS ORDERED: 0.9 % Sodium Chloride 1,000 ML ONE ×2 (12:25→12:54)
[2019-03-07] MEDS ORDERED: *HR* Heparin 10,000 UNIT/10 ML VIAL ONE (12:25)
[2019-03-07] MEDS ORDERED: ISOVUE-370 200 ML INFUS..BTL ONE (12:25)
[2019-03-07] MEDS ORDERED: *HR* Midazolam HCl 2 MG/2 ML VIAL ONE (12:54)
[2019-03-07] MEDS ORDERED: *HR* FentaNYL (PF) 100 MCG/2 ML VIAL ONE (12:54)
--- NOTE | 2019-03-07 13:37 | Invasive Diagnostic Lab Proc ---
Name: Ani Hwang Date of Study: 03/07/2019 Date: 1950 Ht: 66.1in Medical Record#: [id number] Age: 69 Wt: 202.83lb Gender: Female BSA: 2.02 Order #: [id number] BMI: 32.6 Physicians Procedure Physician: Henny Mar MD Referring MD: Referring MD: Staff Name Position Time In Ed Lane RN [place] Tile Shader 12:25 PM Arnulfo Sow RT (R) Monitor 12:25 PM Lizy Spaulding RT (R) Scrub 12:25 PM Indications Indication Non-Stemi Procedures Performed Procedure L HRT ARTERY/VENTRICLE ANGIO Pre-Procedure Checklist Informed consent is complete signed and on chart. H&P is on chart. ID band is on and ID verified with patient. Patient NPO for procedure The procedure was described for the patient and questions were answered. Blood Pressure: 123/66 ECG is on chart. Plan of Care Patient will tolerate the procedure without complications. Adequate level of comfort will be maintained. Hemodynamics will remain stable Patient will recover from procedure without complications. Respiratory function will be maintained. Cardiac rhythm will remain stable. Patient temperature will be maintained. Patient and/or family have verbalized understanding of the procedure. Patient Education Chief Complaint/Reason for Test: Cardiac Cath Developmental Category: Geriatric (65+ years) Developmentally Appropriate for Age: Yes Learning Barriers: None Education Needs: Procedure Education Method: Verbal Information Taught: Cardiac Cath Educational Evaluation: Able to repeat information Intravenous Access Time IV Size Location DC'd Fluid/Drip Rate Units RN 12:47 PM Started with 20g 1 1/4" Lt Antecubital 0.9NaCl Ed Lane RN Allergies iodine morphine phenobarbital codeine Penicillins Sulfa (Sulfonamide Antibiotics) Vital Signs Time BP (mmHg) HR (bpm) O2 Sat. RR (bpm) LOC 12:47 PM 123 / 66 64 93 % 14 5 = Fully awake and oriented or at pre-proc level 12:48 PM / % 5 = Fully awake and oriented or at pre-proc level 12:48 PM / % 4 = Oriented but drowsy 01:03 PM / % 5 = Fully awake and oriented or at pre-proc level 12:54 PM 128 / 75 74 94 % 11 12:59 PM 132 / 72 75 93 % 11 01:04 PM 120 / 68 72 92 % 18 01:09 PM 120 / 65 75 93 % 23 01:14 PM 127 / 67 81 92 % 24 01:19 PM 119 / 66 77 93 % 14 Procedural Medications Time Medication Dose Units Method Given By 12:56 PM Oxygen 2 L/min nasal cannula Ed Lane RN 12:58 PM Versed 0.[address] RN 12:58 PM Fentanyl [address] RN 12:58 PM Benadryl [address] RN 01:06 PM Versed 0.[address] RN 01:06 PM Fentanyl [address] RN 01:06 PM Lidocaine 2% 20 ml Subcutaneous Henny Mar MD ASA Classification: CLASS III- Severe systemic disease (i.e. prior AMI, diabetes with vascular complications, morbid obesity) Juan J Score Preprocedure Postprocedure Activity 2- Moves 4 extremities sustained head lift Activity 2- Moves 4 extremities sustained head lift Circulation 2- SBP +/= 20 points of pre-anesthetic level Circulation 2- SBP +/= 20 points of pre-anesthetic level Consciousness 2- Awake and alert oriented x 3 Consciousness 2- Awake and alert oriented x 3 O2 Saturation 2- Able to maintain O2 satruation of 92% on room air O2 Saturation 2- Able to maintain O2 satruation of 92% on room air Respiratory 2- Able to deep breathe and cough well Respiratory 2- Able to deep breathe and cough well Total Score 10 Total Score 10 Contrast Agent: Isovue Diagnostic Contrast: 64 ml Total Contrast: 64 ml Fluoro Dose: 29 mGy Procedure Log Time Note Enter By 12:[address] RN Position: [place] Tile Shader Time in: 12:25 [email or web address] 12:25 PM Arnulfo Sow RT (R) Position: Monitor Time in: 12:25 [email or web address] 12:25 PM Lizy Spaulding RT (R) Position: Scrub Time in: 12:25 [email or web address] 12:25 PM Clinical Presentation: Non-STEMI [email or web address] 12:46 PM CathStat 12:47 PM Pt arrived to labor crew supervisor 1 at 12:47 [email or web address] 12:47 PM Patient charges- Angio tray pack, Navilyst 3mm J, Pulse Oximetry and ACIST tubing and transducer [email or web address] 12:47 PM Case Delayed No [email or web address] 12:47 PM Time: 12:47 Patient comfortable and pain free: Yes [email or web address] 12:48 PM Time: 12:48LOC: 5 = Fully awake and oriented or at pre-proc level [email or web address] 12:49 PM Physician arrived 12:49 2 12:49 PM Meet and greet completed [email or web address] 12:50 PM Procedure start 12:49 [email or web address] 12:50 PM ASA Class CLASS III- Severe systemic disease (i.e. prior AMI, diabetes with vascular complications, morbid obesity) [email or web address] 12:53 PM Vitals capture started with the following parameters, Patient=Adult, Interval=5 min, Initial Epvwevzx=453 mmHg, Deflation Rate=3 mmHg, Cuff placed on Right Arm 12:54 PM HR=74 bpm, TSOB=577/75 mmhg, SpO2=94.0 %, Resp=11 B/min 12:56 PM Hair removed from procedure site in procedure lab using clippers. Bilateral groin prepped with Chloraprep by Lizy Spaulding (R), then patient was draped. Skin intact. [email or web address] [id number] 12:56 PM Time: 12:56 Oxygen on at 2 L/min per nasal cannula by Ed Lane RN [email or web address] [id number] 12:56 PM Recorded ECG: HR=73 Condition=Condition 1 12:58 PM Time: 12:58 Versed 0.5 mg Intravenous Given by Ed Lane RN [email or web address] [id number] 12:58 PM Time: 12:58 Fentanyl 25 mcg Intravenous Given by Ed Lane RN [email or web address] [id number] 12:58 PM Time: 12:58 Benadryl 25 mg Intravenous Given by Ed Lane RN [id number] 12:59 PM HR=75 bpm, ZROU=947/72 mmhg, SpO2=93.0 %, Resp=11 B/min 01:01 PM Pressure channel 2 zeroed. 01:03 PM Time: 12:47 Patient comfortable and pain free: Yes 01:03 PM Time: 12:48LOC: 4 = Oriented but drowsy [email or web address] 01:04 PM HR=72 bpm, UHPP=054/68 mmhg, SpO2=92.0 %, Resp=18 B/min 01:05 PM Time out was performed according to hospital policy. Conscious sedation and anesthesia was achieved (see medication log with in this report above) [email or web address] 01:06 PM Time: 13: Versed 0.5 mg Intravenous Given by Ed Lane RN : PM Time: 13: Fentanyl 25 mcg Intravenous Given by Ed Lane RN : PM Time: 13: 20 ml Lidocaine 2% to right groin Subcutaneous Given by Henny Mar MD : PM Micro-Introducer Kit utilized for sheath placement : PM hand injected right femoral angiogram, 4cc contrast :07 PM Access obtained by percutaneous puncture. 6Fr 10cm Terumo [place] sheath placed in right Femoral artery. [id number] :08 PM 0.035 145cm Navilyst 3mmJ wire [id number] :08 PM 5Fr FR 4 catheter inserted over the wire [facility] :08 PM Recorded Pressure: Ao, HR=73, Condition=Condition 1 (Aorta) Ao 103/70/84 01:09 PM RCA angiography performed in multiple views. : PM HR=75 bpm, TIHX=542/65 mmhg, SpO2=93.0 %, Resp=23 B/min, EtCO2=28 mmHg 01: PM Coronary Dominance: right : PM Lesion found in Mid RCA. Pre Stenosis: 25 Pre HUSSAIN Flow: : PM Right Coronary, Right Posterior Descending Arteries with Right Posterolateral and Acute Marginal branches with 25 % stenosis. If graft is supplying this area, 0 % stenosis :10 PM Catheter removed : PM 5Fr FL 4 catheter inserted over the wire [facility] : PM LCA angiography performed in multiple views. : PM Recorded Pressure: Ao, HR=75, Condition=Condition 1 (Aorta) Ao 96/74/86 01:12 PM Lesion found in Proximal LAD. Pre Stenosis: 25 Pre HUSSAIN Flow: :12 PM Proximal Left Anterior Descending Coronary Artery with 25% stenosis. If graft is supplying this territory, 0 % stenosis. :12 PM Lesion found in 1st Marginal. Pre Stenosis: 50 Pre HUSSAIN Flow: :12 PM Circumflex, Obtuse Marginal, Left Posterior Descending, and Left Posterolateral Coronary Arteries with 50 % stenosis. If graft is supplying this area, 0 % stenosis bw 01:13 PM Catheter removed bw:13 PM 5Fr Pigtail catheter inserted over the wire [facility] bw:13 PM Catheter crossed the aortic valve and was selectively placed in the left ventricle. Pressures recorded on pullback for left heart catheterization. bw 01:14 PM Recorded Pressure: LV, HR=81, Condition=Condition 1 (Left Ventricle) LV 109/16/16 01:14 PM HR=81 bpm, JTAU=076/67 mmhg, SpO2=92.0 %, Resp=24 B/min 01:14 PM Recorded Pressure: LV, Ao, HR=82, Condition=Condition 1 (Left Ventricle) LV 106/18/17, (Aorta) Ao 108/32/70 01:14 PM Catheter removed :16 PM Arterial sheath pulled, Angio-seal closure device used and was Successful [id number] S/N. bw:16 PM Procedure completed at 13:16 03/07/2019 bw:17 PM Sign out completed: Radiation Dose 245.20 mGy, 28.9 Gy/cm2 Fluoro Time: 1.6 Isovue 370 - 200ml contrast 64 ml given by Henny Mar MD. Complications: None. 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 Sedation minutes 18. Cardiac Rehab Consult needed: No. Confirmed administered medications: Yes :17 PM Isovue 370 - 200ml,1 Bottle(s) used. :18 PM Time: 13:03LOC: 5 = Fully awake and oriented or at pre-proc level bw:18 PM Time: 13:03 Patient comfortable and pain free: Yes bw:18 PM Estimated Blood Loss: less than 20cc [email or web address] 01:18 PM Post ECG NSR [email or web address] :18 PM Post Blood Pressure 127/67 [email or web address] :18 PM Information taught Cardiac Cath and Angioseal [email or web address] 01:18 PM Education needs Procedure, Plan of Care, and Disease Process [email or web address] 01:19 PM Learning barriers :Sedated [email or web address] 01:19 PM Education Methods Verbal [email or web address] :19 PM Education evaluation Needs further instruction [email or web address] :19 PM Delay to floor No [email or web address] 01:19 PM HR=77 bpm, BLVZ=807/66 mmhg, SpO2=93.0 %, Resp=14 B/min 01:19 PM Family placed in consult room. [email or web address] 01:19 PM Complications: None [email or web address] 01:22 PM Report given to yuliet ALVAREZ Pt taken to 3B Room #55. 13:22 [email or web address] 01:22 PM Vitals capture stopped. 01:25 PM Patient out of room: 13:25 [email or web address] Complications Complication None None Hemodynamics Pressures Site Systolic/A Wave Diastolic/V Wave Mean AO 103 70 84 AO 96 74 86 LV 109 16 16 LV 106 18 17 AO 108 32 70 Post Procedure Information Blood Pressure: 127/67 mmHg Rhythm: NSR Post procedural instructions were given Closure Device Time Device Success/Fail 03/07/2019 1:16:00 PM Angio-Seal VIP Successful Pulses Time Site Pre-Procedure Post-Procedure Note 03/07/2019 12:47:00 PM Bilateral DP 2+ 2+ 03/07/2019 12:47:00 PM Bilateral radial 2+ 2+ Updated by Arnulfo WYLIE (R) on 03/07/2019 1:26:45 PM RT Dre electronically signed on 03/07/2019 1:27:10 PM with status of Final
--- NOTE | 2019-03-07 16:05 | Event Note ---
Date of Encounter: 03/07/19 Time of Encounter: 16:02 - Cardiology Event Note [facility] with nonobstructive CAD, no intervention. Continue Plavix, Statin, BB, increase nitrates--Imdur to 60mg daily. Not on ASA d/t being on Eliquis. Cardiology signing off. Reconsult PRN. RISK FACTORS: STOP SMOKING: If you smoke, STOP. Smoking or tobacco use significantly increases your risk of heart disease because nicotine causes the arteries to narrow or constrict. It also causes fats to stick to the artery. Your chances of having a heart attack are greatly increased if you continue to smoke. For more information, call the education line for smoking cessation 4-868-IJKJMSR EAT A LOW FAT/CHOLESTEROL/SODIUM DIET: This diet may help reduce your chances of having a heart attack. LIFTING: Avoid lifting anything more than 10 pounds for 5-7 days Prior to straining, laughing, sneezing and/or coughing, apply manual pressure directly over insertion site. ACTIVITY: You may walk or climb stairs as tolerated You can resume sexual activity as tolerated In general, you are encouraged to engage in a minimum of 30 minutes or more of moderate intensity physical activity, such as brisk walking, daily or at least 3-4 times weekly BATHING Do not submerge the site into water (bath tub, hot tub, swimming pool) for 1 week. This can be a source for infection into the blood stream. You may shower after 24 hours SITE CARE: After 24 hours, you may remove the dressing and leave the site open to air. Keep the site clean and dry. Clean gently and pat dry. You can expect bruising and tenderness that gradually resolve within a week or two. Return to work as instructed per your physician Resume driving as instructed per physician Keep all scheduled follow up appointments Resume medications as instructed IMPORTANT: If prescribed a Platelet Aggregation Inhibitor such as, Plavix, Brilinta or Effient: Duration of therapy is minimum one year These medications are often used in combination with Aspirin in prevention of future heart attacks Never discontinue unless consult with your Supervisor [place] STROKE (CVA) Risk factors for a stroke are: Age, cigarette smoking, diabetes, excessive alcohol consumption, family history, high blood pressure, overweight, physical inactivity, prior stroke, heart attack, diagnosis of carotid artery stenosis or other artery disease. Warning signs: Sudden numbness or weakness of the face, arm or leg; especially on one side of the body, sudden confusion, trouble speaking or understanding, sudden trouble seeing in one or both eyes, sudden trouble walking, dizziness, loss of balance or coordination, sudden severe headache with no cause. Call 911 or go to the Emergency Room. CONGESTIVE HEART FAILURE: If you have been diagnosed with Congestive Heart Failure (CHF) and your symptoms return, make an appointment with your physician Weigh yourself daily. Notify your physician if you have a weight gain of two or more pounds in one day or five or more pounds in one week. If you experience any difficulty breathing, please call 911 BLEEDING: Although the risk of bleeding is minimal, it can happen. If you have any bleeding from the site, apply firm pressure above the puncture site for 10-15 minutes. If the bleeding does not stop, continue manual pressure and call 911 Contact your physician if: You develop a fever greater than 101 degrees Fahrenheit Your site becomes reddened or has any drainage You have an increase in pain or burning at the site or if a large knot forms at the site. If you experience chest pain, shortness of breath, dizziness, or extreme tiredness, stop the activity and rest. Please notify your physicians office if you experience any of these symptoms and they are not relieved by rest please call 911!
[2019-03-07] MEDS ORDERED: Apixaban 2.5 MG TABLET PO SCH (18:00)
[2019-03-08 02:25] LABS: Hematocrit 34.3 % (35.3-44.9); Hemoglobin 11.1 g/dL (11.5-15.4); Mean Corpuscular HGB Conc 32.4 g/dL (31.6-35.5); Mean Corpuscular Hemoglobin 32.1 pg (28.0-33.3); Mean Corpuscular Volume 99.1 fL (83.0-100.0); Mean Platelet Volume 9.5 fL (9.4-12.4); Platelet Count 359 K/mcL (140-400); Red Blood Count 3.46 M/mcL (3.82-4.97); Red Cell Distribution Width 14.7 % (11.5-14.5)
[2019-03-08 02:48] LABS: BUN/Creatinine Ratio 16 (6-26); Blood Urea Nitrogen 15 mg/dL (8-23); Calcium 10.6 mg/dL (8.6-10.3); Carbon Dioxide 24 mEq/L (23-29); Chloride 113 mEq/L (98-107); Glucose 186 mg/dL (70-105); Osmolality,Calculated 292 (280-300); Potassium 4.5 mEq/L (3.5-5.1); Sodium 138 mEq/L (136-145); eGFR For Non-African Americans > 60 (> 60)
[2019-03-08 07:07] VITALS: BP 121/67
[2019-03-08] MEDS: Budesonide/Formoterol 160/4.5 1 PUFF INH IH SCH (07:20)
[2019-03-08] MEDS: Apixaban 5 MG TABLET PO SCH (07:43)
[2019-03-08] MEDS: Folic Acid 1 MG TABLET PO SCH (07:43)
[2019-03-08] MEDS: Potassium Chloride Elixir 20 MEQ/15 ML UDC PO SCH (07:44)
[2019-03-08] MEDS ORDERED: Isosorbide MONOnitrate (24 HR) 30 MG TAB.ER.24H PO SCH (09:00)
[2019-03-08] MEDS ORDERED: Fenofibrate 54 MG TABLET PO SCH (09:00)
--- NOTE | 2019-03-08 09:33 | Discharge Summary ---
- NOTES TO OUTPATIENT PROVIDER Notes to Outpatient Provider: f/u with PCP within a week. Orders not resulted at time of discharge: Pending orders 03/05/19 15:26 ECG 12 lead ECG [ECG] Stat 03/07/19 09:00 CL Cardiac Catheterization [CL] Routine Date of Encounter: 03/08/19 Time of Encounter: 09:27 - Discharge Diagnosis (1) Chest pain Priority: Primary Status: Acute Qualifiers: Chest pain type: unspecified Qualified Code(s): R07.9 - Chest pain, unspecified (2) Cough variant asthma Priority: Secondary Status: Chronic (3) CKD (chronic kidney disease) stage 3, GFR 30-59 ml/min Priority: Secondary Status: Chronic (4) Afib Priority: Secondary Status: Chronic Qualifiers: Atrial fibrillation type: paroxysmal Qualified Code(s): I48.0 - Paroxysmal atrial fibrillation (5) History of systemic lupus erythematosus (SLE) Priority: Secondary Status: Chronic (6) DVT prophylaxis Priority: Primary Status: Acute Hospital course: Ms. Hwang is a 69 year old female with history of CAD status post PCI 4 (last one 3 years ago), proximal A. fib, cough variant asthma, SLE, Joe t hyroiditis, and CKD, who presented from cardiology office due to chest pain. States that it started while she was driving to the clinic at 12:30pm, heaviness, radiates to her left neck. Associated with diaphoresis. No relieving factor so far but it was worsened with deep inspiration. Taking Eliquis presumably for Afib (recently transferred her care from [facility] to [place] due to insurance). No recent immobilization or surgery. Denies any shortness of breath, cough, sputum production, or sick contacts. No palpitation, hemoptysis, orthopnea, PND, or leg swelling. No GI/ symptoms. She was initially noted to be borderline hypotensive at the cardiology clinic but upon presentation to the ED, her blood pressure had already normalized. Otherwise afebrile and with good oxygen saturation on room air. Labwork was unremarkable with normal troponin and WBC. K 3.2, Cr 0.93. EKG showed normal sinus rhythm with STT changes at leads II, III, and aVF, concerning for ischemia. Pt was admitted for further management. Further workup showed normal serical troponin, however, repeat EKG showed subtle st-t depression on leads II, III, and aVF, concerning for ischemia in inferior wall. An echocardiogram was performed which showed LV ejection fraction 70%, grossly normal systolic function, the apex, apical inferior, mid inferior, basal inferior, apical anterior, mid anterior, and basal anterior wall were not visualized. Patient subsequently underwent a left heart catheterization which revealed nonobstructive coronary artery system. Cardiology recommended continuing medical management with Plavix, beta blockers, ARB, and a statins. Isosorbide was introduced. On the discharge today, patient vital signs were stable, labs were unremarkable, right groin arterial puncture site no hematoma. The slight elevation of calcium Revealed multiple lab test was discussed with patient, the PTH level which was test in 2018, was also slightly elevated. Patient does have a history of Gissel nicole thyroiditis and currently taking synthroid. She does report intermittent constipation which could be caused by high calcium. She decided not to pursue further testing. I advised her there is a medication, sensipar, which could bring down the calcium. She stated she will discuss with PCP about this on f/u visit. Patient is discharged home today. Discharge discussed with: patient Time spent discussing smoking cessation with patient: more than 10 minutes - Time Spent with Patient Total time spent providing and/or coordinating discharge services: Time spent: Greater than 30 minutes - Discharge Medications Prescriptions: New Isosorbide MONOnitrate (24 HR) [Imdur] 60 mg PO DAILY #30 tab.er.24h Continued Spironolactone [Aldactone] 50 mg PO QAM Ergocalciferol (VITAMIN D2) [Vitamin D2] 50,000 unit PO WE Cyclobenzaprine HCl 10 mg PO HS Folic Acid 1 mg PO DAILY Ferrous Gluconate 324 mg PO DAILY Losartan Potassium [Cozaar] 50 mg PO DAILY Hydroxychloroquine Sulfate [Plaquenil] 200 mg PO TID Budesonide/Formoterol 160/4.5 [Symbicort 160/4.5] 2 puff IH BIDR Albuterol Sulfate [Albuterol Inhaler] 2 puff IH Q6H PRN PRN Reason: Dyspnea Potassium Chloride [Klor-Con 10] 10 meq PO TID Omeprazole [PriLOSEC] 20 mg PO BID Fluticasone Propionate Nasal [Flonase] 50 mcg NS DAILY Nitroglycerin [Nitrostat] 0.4 mg SL CONT PRN MDD X3 DOSES CALL 911 PRN Reason: Chest Pain Fenofibric Acid (Choline) [Trilipix] 135 mg PO DAILY Clopidogrel [Plavix] 75 mg PO DAILY Levothyroxine Sodium [Tirosint] 50 mcg PO QAM DULoxetine [Cymbalta] 30 mg PO DAILY Methotrexate [Otrexup] 15 mg PO MO Apixaban [Eliquis] 2.5 mg PO DAILY Dicyclomine Hcl [Bentyl] 20 mg PO QID PRN PRN Reason: CRAMPING Albuterol Neb [Proventil Neb] 2.5 mg PO Q6H PRN PRN Reason: Wheezing Allopurinol [Zyloprim 300 MG] 300 mg PO DAILY Atorvastatin Calcium [Lipitor] 20 mg PO HS Cyanocobalamin (B-12) [Vitamin B12] 1,000 mcg SQ QMONTH Fexofenadine HCl [Allergy Relief] 180 mg PO DAILY Furosemide [Lasix] 60 mg PO QAM Furosemide [Lasix] 40 mg PO QPM Metoprolol [Lopressor] 25 mg PO BID Montelukast Sodium [Singulair] 5 mg PO DAILY Polyethylene Glycol 3350 17 gm PO DAILY Home Medications: Albuterol Sulfate [Albuterol Inhaler] 2 puff IH Q6H PRN 10/05/18 [History] Apixaban [Eliquis] 2.5 mg PO DAILY 10/05/18 [History] Budesonide/Formoterol 160/4.5 [Symbicort 160/4.5] 2 puff IH BIDR 10/05/18 [History] Clopidogrel [Plavix] 75 mg PO DAILY 10/05/18 [History] Cyclobenzaprine HCl 10 mg PO HS 10/05/18 [History] DULoxetine [Cymbalta] 30 mg PO DAILY 10/05/18 [History] Dicyclomine Hcl [Bentyl] 20 mg PO QID PRN 10/05/18 [History] Ergocalciferol (VITAMIN D2) [Vitamin D2] 50,000 unit PO WE 10/05/18 [History] Fenofibric Acid (Choline) [Trilipix] 135 mg PO DAILY 10/05/18 [History] Ferrous Gluconate 324 mg PO DAILY 10/05/18 [History] Fluticasone Propionate Nasal [Flonase] 50 mcg NS DAILY 10/05/18 [History] Folic Acid 1 mg PO DAILY 10/05/18 [History] Hydroxychloroquine Sulfate [Plaquenil] 200 mg PO TID 10/05/18 [History] Levothyroxine Sodium [Tirosint] 50 mcg PO QAM 10/05/18 [History] Losartan Potassium [Cozaar] 50 mg PO DAILY 10/05/18 [History] Methotrexate [Otrexup] 15 mg PO MO 10/05/18 [History] Nitroglycerin [Nitrostat] 0.4 mg SL CONT PRN MDD X3 DOSES CALL 911 10/05/18 [History] Omeprazole [PriLOSEC] 20 mg PO BID 10/05/18 [History] Potassium Chloride [Klor-Con 10] 10 meq PO TID 10/05/18 [History] Spironolactone [Aldactone] 50 mg PO QAM 10/05/18 [History] Albuterol Neb [Proventil Neb] 2.5 mg PO Q6H PRN 03/05/19 [History] Allopurinol [Zyloprim 300 MG] 300 mg PO DAILY 03/05/19 [History] Atorvastatin Calcium [Lipitor] 20 mg PO HS 03/05/19 [History] Cyanocobalamin (B-12) [Vitamin B12] 1,000 mcg SQ QMONTH 03/05/19 [History] Fexofenadine HCl [Allergy Relief] 180 mg PO DAILY 03/05/19 [History] Furosemide [Lasix] 40 mg PO QPM 03/05/19 [History] Furosemide [Lasix] 60 mg PO QAM 03/05/19 [History] Metoprolol [Lopressor] 25 mg PO BID 03/05/19 [History] Montelukast Sodium [Singulair] 5 mg PO DAILY 03/05/19 [History] Polyethylene Glycol 3350 17 gm PO DAILY 03/05/19 [History] Isosorbide MONOnitrate (24 HR) [Imdur] 60 mg PO DAILY #30 tab.er.24h 03/08/19 [Rx] Allergies/Adverse Reactions: Allergy/AdvReac Type Severity Reaction Status Date / Time acetaminophen Allergy Vomiting Verified 03/05/19 22:23 [From Joss] ampicillin Allergy Rash Verified 03/05/19 22:23 codeine Allergy Vomiting Verified 03/05/19 22:23 iodine Allergy Rash Verified 03/05/19 22:23 meperidine [From Demerol] Allergy Vomiting Verified 03/05/19 22:23 moxifloxacin [From Avelox] Allergy See Verified 03/05/19 22:23 Comments Penicillins Allergy Rash Verified 03/05/19 22:23 pentazocine Allergy See Verified 03/05/19 22:23 Comments phenobarbital Allergy Vomiting Verified 03/05/19 22:23 propoxyphene [From Darvon] Allergy Vomiting Verified 03/05/19 22:23 Sulfa (Sulfonamide Allergy Rash Verified 03/05/19 22:23 Antibiotics) morphine AdvReac Vomiting Verified 03/05/19 22:23 Date of admission: 03/05/19 15:53 Primary care physician: Cherri Recinos MD Consults: 03/05/19 16:26 Consult to Cardiology [CONS] Routine Comment: Consulting Provider: Cardiology Maria Teresa Reason for Consult: chest pain, hx of CAD s/p PCI, sent from cardiology clinic Call Completed: Yes Anticipated date of discharge: 03/08/19 - Constitutional Vitals: Temp Pulse Resp BP Pulse Ox 98.0 F 65 14 121/67 96 03/08/19 07:05 03/08/19 07:05 03/08/19 07:21 03/08/19 07:05 03/08/19 07:21 General appearance: Present: A&O X 3 Exam: General: Alert and oriented, mild distress HEENT:EOMI, pupils equal, round and reactive. Cardiovascular:Normal S1 & S2, No JVD. Pulse regular. No chest wall tenderness Lungs: clear to auscultation, no wheezes/rales Abdomen:Soft, non-tender, no rigidity. Extremities:No deformity or swelling Neurological:Normal cognition and motor skills. Non-focal Skin:Normal color, no rash, no lesions. Pulses:Carotid and radial pulses normal +2. Rest of the physical exam is non contributory - Patient Status Disposition: Home, Self-Care Condition: Good Functional capacity at discharge: independent ambulation Overall status at discharge: patient is progressing back to baseline - Discharge Instructions Follow Up With: Cherri Recinos MD [Primary Care Provider] - 03/15/19 9:30 am - Diet and Activity Activity: increase activity as tolerated Diet: low fat, low cholesterol, low salt diet
[2019-03-12] MEDS ORDERED: *HR* Methotrexate 2.5 MG TABLET PO SCH (20:24)
== END 2019-03-08 11:00 | disposition home or self-care (01) ==
LOC: 3BNU 14:30 → EMEROOARM 14:30 → 3BNU 17:40
PROVIDERS: ADMIT Student in an Organized Health Care Education/Training Program; ATTEND Student in an Organized Health Care Education/Training Program